=== PATIENT | female | born 1985 | race Caucasian/White ===

== ENCOUNTER 2024-02-05 10:37 | Emergency (ER) | payer OTHER ==
[~2024-02-05] VITALS: Ht 165.1 cm; Wt 79.7 kg
[2024-02-05] MEDS: ketorolac trometh 15mg/ml vial 15 MG/ML ML IM ONE (13:37)
[2024-02-05 14:01] LABS: BASOPHILS % (AUTO) 0.5 % (0-1); EOSINOPHILS # (AUTO) 0.1 X10'3 (0-0.9); EOSINOPHILS % (AUTO) 0.9 % (0-6); HEMATOCRIT 43.8 % (35.0-45.0); LYMPHOCYTES # (AUTO) 1.7 X10'3 (1.1-4.8); LYMPHOCYTES % (AUTO) 19.5 % (21-51); MEAN CORPUSCULAR HEMOGLOBIN 32.4 PG (27.0-31.0); MEAN CORPUSCULAR HGB CONC 34.4 g/dL (33.0-36.5); MEAN CORPUSCULAR VOLUME 94.2 FL (78-98); MEAN PLATELET VOLUME 8.7 FL (7.4-10.4); MONOCYTES # (AUTO) 0.6 X10'3 (0-0.9); MONOCYTES % (AUTO) 6.7 % (2-12); NEUTROPHILS # (AUTO) 6.4 X10'3 (1.8-7.7); NEUTROPHILS % (AUTO) 72.4 % (42-75); PLATELET COUNT 245 X10'3 (140-440); RED BLOOD COUNT 4.65 X10'6 (4.20-5.60); RED CELL DISTRIBUTION WIDTH 14.3 % (11.5-14.5); WHITE BLOOD COUNT 8.8 X10'3 (4.5-11.0)
[2024-02-05 14:16] LABS: ALANINE AMINOTRANSFERASE 30 U/L (12-78); ALBUMIN 3.6 G/DL (3.4-5.0); ALKALINE PHOSPHATASE 62 IU/L (46-116); ANION GAP 10 (8-16); ASPARTATE AMINO TRANSFERASE 17 U/L (10-37); BLOOD UREA NITROGEN 7 MG/DL (7-18); BUN/CREATININE RATIO 8.4 (10.0-20.0); CALCIUM 9.1 MG/DL (8.5-10.1); CHLORIDE 104 MMOL/L (99-107); CREATININE 0.83 MG/DL (0.40-0.90); GLUCOSE 89 MG/DL (70-104); SODIUM 140 MMOL/L (135-145); TOTAL CARBON DIOXIDE 25.9 MMOL/L (24-32); TOTAL PROTEIN 7.2 G/DL (6.4-8.2); eCRCL 82 ML/MIN; eGFR 77 ML/MIN
[2024-02-05] MEDS: HYDROcodone/acetaminophen 5mg/325mg tablet PO ONE (15:17)
[2024-02-05 15:23] LABS: URIC ACID 3.6 MG/DL (2.5-6.2)
[2024-02-05] MEDS ORDERED: DOXY-1 PO (15:45)
[2024-02-05 15:58] VITALS: BP 127/82; PULSE 66; TEMP 98.1; O2SAT 98
[2024-02-05 15:59] VITALS: RESP 17
== END 2024-02-05 16:00 | disposition home or self-care (01) ==
LOC: ER 10:38
DX: L03.113 Cellulitis of right upper limb (principal); Z88.0 Allergy status to penicillin; Z88.5 Allergy status to narcotic agent
CPT/HCPCS: 36415; 73130; 73200; 80053; 83605; 84145; 84550; 85025; 96372; 99285; J1885

== ENCOUNTER 2024-05-30 13:15 | Emergency (ER) | payer OTHER ==
[~2024-05-30] VITALS: Ht 165.1 cm; Wt 70.5 kg
[2024-05-30 16:28] VITALS: BP 113/69; PULSE 66; RESP 18; O2SAT 100
[2024-05-30 16:35] LABS: D-DIMER < 0.19 MG/L FEU (0-0.50)
[2024-05-30] MEDS ORDERED: PRED50TA PO (16:41)
[2024-05-30] MEDS ORDERED: GABA300C PO (16:41)
[2024-05-30 17:00] VITALS: TEMP 97.4
== END 2024-05-30 17:03 | disposition home or self-care (01) ==
LOC: ER 13:15
DX: M54.17 Radiculopathy, lumbosacral region (principal); Z88.0 Allergy status to penicillin; Z88.5 Allergy status to narcotic agent; Z79.899 Other long term (current) drug therapy
CPT/HCPCS: 36415; 85379; 99283